=== PATIENT | female | born 1965 | race Hispanic/Latino ===

== ENCOUNTER 2023-04-08 14:24 | Emergency (ER) | payer SELFPAY ==
[2023-04-08] MEDS ORDERED: Lidocaine 1% w/Epinephrine 1:200K 30 ML VIAL ONE (15:38)
== END 2023-04-08 16:19 | disposition home or self-care (01) ==
LOC: CSHERS 14:24
DX: R22.2 Localized swelling, mass and lump, trunk (principal); S30.810A Abrasion of lower back and pelvis, initial encounter; X58.XXXA Exposure to other specified factors, initial encounter
CPT/HCPCS: 12001; 88304; 99283